=== PATIENT | female | born 1985 | race Caucasian/White ===

== ENCOUNTER 2018-05-06 15:55 | Observation (INO) ==
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
[2018-05-06 20:34] LABS: Baso % (Auto) 0.5 % (0.0-2.0); Eos # (Auto) 0.1 th/mm3 (0.0-0.4); Eos % (Auto) 1.5 % (0.0-4.0); Hematocrit 35.8 % (35.0-46.0); Hemoglobin 12.1 gm/dL (11.6-15.3); Lymph # (Auto) 1.6 th/mm3 (1.0-4.8); Lymph % (Auto) 22.1 % (9.0-44.0); Mean Corpuscular HGB Conc 33.8 % (32.0-36.0); Mean Corpuscular Hemoglobin 30.7 pg (27.0-34.0); Mean Platelet Volume 9.2 fL (7.0-11.0); Mono # (Auto) 0.4 th/mm3 (0.0-0.9); Mono % (Auto) 5.9 % (0.0-8.0); Neut # (Auto) 5.1 th/mm3 (1.8-7.7); Platelet Count 248 th/mm3 (150-450); Red Blood Count 3.93 mil/mm3 (4.00-5.30); Red Cell Distribution Width 12.5 % (11.6-17.2); White Blood Count 7.2 th/mm3 (4.0-11.0)
[2018-05-06 20:42] LABS: Activated Partial Thrombo Time 28.4 sec (23.4-31.7); Prothrombin Time 10.6 sec (9.8-11.6)
[2018-05-06 21:00] LABS: Calcium 8.8 mg/dL (8.5-10.1); Carbon Dioxide 21.8 meq/L (21.0-32.0); Potassium 4.7 meq/L (3.5-5.1)
[2018-05-06] MEDS ORDERED: Sod Chloride 0.9% Inj 1,000 ML IV.CONT SCH (21:30)
[2018-05-06] MEDS: Acetaminophen 325 MG Tablet PO PRN (23:20)
[2018-05-07] MEDS ORDERED: Chlorhexidine Gluconate 2% 1 Pack (2 Cloths) TOPICAL ONE (01:22)
[2018-05-07] MEDS ORDERED: Sodium Chlor 0.9% Inj 500 ML IV.SIG SCH (02:00)
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
[2018-05-07] MEDS: Acetaminophen 325 MG Tablet PO PRN (03:47)
[2018-05-07] MEDS ORDERED: Enoxaparin Inj 40 MG/0.4 ML Syringe SQ SCH (09:00)
[2018-05-07] MEDS ORDERED: Bupivacaine 0.5% Inj 50 ML MDV Vial ONE (11:19)
--- NOTE | 2018-05-07 12:26 | P.CONPOD ---
History of Present Illness Service: podiatry Consult date: 05/07/18 Primary Care Provider: UNKNOWN Chief Complaint: left leg traction History of Present Illness: Patient underwent open fracture/degloving injury debridement with residual large dorsal wound and tendon damage with external fixator placement a few months ago. She has been having wound care and is here for the exfix to be removed. Review of Systems All other systems reviewed negative except as stated in HPI PMFSH - History History Provided By: Patient - Medical History Medical History: Medical History (Last Reviewed 05/07/18 @ 03:23 by NAT Burkett) Umbilical hernia - Surgical History Surgical History: Surgical History (Last Reviewed 05/07/18 @ 03:24 by NAT Burkett) H/O tubal ligation - Family History Family History: Family History (Last Reviewed 05/07/18 @ 03:24 by NAT Burkett) Father No problems noted. Mother Hypertension - Tobacco History Second Hand Smoke Exposure: No Tobacco Use In Past 30 Days: Yes Smoking Status: Current every day smoker Tobacco Type: Cigarettes - Alcohol History How Often Do You Have a Drink Containing Alcohol: Never - Substance Use History Substance History: No History of Abuse - Travel History Recent Travel in the [place] Within the Last 8 Weeks: No Recent Travel Out of the Country Within the Last 8 Weeks: No - Immunization History Tetanus Immunization: Unsure Hx Influenza Vaccine This Season: No Medications and Allergies Active Medications: Active Medications Acetaminophen (Tylenol) 650 mg PO Q4H PRN PRN Reason: Temp > 100.4 Last Admin: 05/07/18 03:47 Dose: 650 mg Al Hydroxide/Mg Hydroxide (Milk Of Gilberto Pagan) 30 ml PO Q12H PRN PRN Reason: Mild Constipation Enoxaparin Sodium (Lovenox Inj) 40 mg SQ Q24H [facility] Last Admin: 05/07/18 10:03 Dose: Not Given Sodium Chloride (Ns Inj) 1,000 mls @ 75 mls/hr IV.CONT .[id number] [facility] Last Admin: 05/06/18 23:24 Dose: 75 mls/hr Lactated Ringer's (Lr 1000 Ml Inj) 1,000 mls @ 30 mls/hr IV.SIG .Q24H GRAY Stop: 05/08/18 01:29 Sodium Chloride (Ns Inj) 500 mls @ 30 mls/hr IV.SIG .Q10H GRAY Ondansetron HCl (Zofran Inj) 4 mg IV.PUSH Q6H PRN PRN Reason: NAUSEA OR VOMITING Sodium Chloride (Ns Flush) 2 ml IV.FLUSH BID GRAY Last Admin: 05/07/18 10:03 Dose: Not Given Sodium Chloride (Ns Flush) 2 ml IV.FLUSH PRN PRN PRN Reason: FLUSH AFTER USING IV ACCESS Allergies Allergy/AdvReac Type Severity Reaction Status Date / Time No Known Allergies Allergy Unverified 05/06/18 22:58 Home Medications Medication Instructions Recorded Confirmed Type ibuprofen PO Q2-4H PRN 05/06/18 History Physical Exam Vital signs: Vital Signs 05/06/18 16:32 05/06/18 22:47 05/06/18 23:50 Temperature 98.4 F 97.4 F L Pulse Rate 75 59 L Respiratory Rate 18 19 18 Blood Pressure 143/73 H 132/86 Pulse Oximetry 99 99 05/07/18 04:17 05/07/18 04:23 05/07/18 08:00 Temperature 97.6 F 97.4 F L Pulse Rate 64 72 Respiratory Rate 18 18 16 Blood Pressure 125/77 138/82 Pulse Oximetry 98 99 Intake & Output 05/06/18 05/07/18 05/07/18 18:59 06:59 18:59 Weight 72.575 kg 77.2 kg Other: # Voids 2 Weight On Admission 77.2 kg Narrative: left foot with external fixator in place, two transtibial pins, one transcalcaneal pin, and one medial/lateral foot pin, respectively, holding foot in dorsiflexion. Wound to dorsal foot/ankle measures approximately 6cm x 4cm x 0.2cm depth with granular base and no sign of infection. Results - Labs CBC & Chem 7: 05/06/18 20:17 05/06/18 20:17 Laboratory Results - last 24 hr 05/06/18 05/06/18 05/06/18 20:17 20:17 20:17 WBC 7.2 RBC 3.93 L Hgb 12.1 Hct 35.8 MCV 91.0 MCH 30.7 MCHC 33.8 RDW 12.5 Plt Count 248 MPV 9.2 Neut % (Auto) 70.0 Lymph % (Auto) 22.1 [place] % (Auto) 5.9 Eos % (Auto) 1.5 Baso % (Auto) 0.5 Neut # (Auto) 5.1 Lymph # (Auto) 1.6 [place] # (Auto) 0.4 Eos # (Auto) 0.1 Baso # (Auto) 0.0 WBC Differential . Differential Comment Auto diff final PT 10.6 INR 1.0 APTT 28.4 Sodium 137 Potassium 4.7 Chloride 110 H Carbon Dioxide 21.8 Anion Gap 5 BUN 30 H Creatinine 0.82 Estimated GFR 81 L Random Glucose 90 Calcium 8.8 Assessment and Plan - Assessment (1) Painful orthopaedic hardware Code(s): T84.84XA - Pain due to internal orthopedic prosthetic devices, implants and grafts, initial encounter Status: Acute - Plan To OR for removal of external fixator and possible graft to wound. NPO
--- NOTE | 2018-05-07 12:31 | P.BOP ---
- Preoperative Diagnosis (1) Painful orthopaedic hardware - Postoperative Diagnosis (1) Painful orthopaedic hardware Date of procedure: 05/07/18 Procedure: 1. Removal of multi-plane external fixator left foot/ankle Left foot with external fixator in place, two transtibial pins, one transcalcaneal pin, and one medial/lateral foot pin, respectively, holding foot in dorsiflexion. Wound to dorsal foot/ankle measures approximately 6cm x 4cm x 0.2cm depth with granular base and no sign of infection. All hardware removed, pin sites debrided excisionally with currettage and #15 blade of fibrotic tissue down to level of healthy bleeding subcutaneous tissue, followed by irrigation with normal saline and closure with 2-0 nylon. No skin graft placed at this time, as wound size has decreased by half since last seen in clinic 3 weeks ago and anticipate continued healing. Dressing with xeroform, 4x4, abd, cast padding, dejan, and short posterior splint. No tourniquet utilized. 2g ancef IV preop DISPOSITION: Strict nonweightbearing left lower extremity in splint. Ok to discharge today to home. She has follow up next in clinic with me already. Implants: synthes external fixator removed. Anesthesia: GETA, local (20mL 0.5% marcaine plain) Surgeon: Yeimi Melo DPM Director Part: staff Estimated blood loss (mL): 20 Pathology: none sent Condition: stable Disposition: PACU
[2018-05-07] MEDS ORDERED: fentaNYL Citrate Inj 100 MCG/2 ML Ampul ONE (12:32)
[2018-05-07] MEDS ORDERED: *morphine SULFATE 4 MG/ML PERIprocedure ONLY ONE ×2 (12:35→12:42)
[2018-05-07] MEDS ORDERED: *HYDROmorphone PF Inj 1 MG/ML Ampul PERIprocedural Use ONLY ONE (12:54)
--- NOTE | 2018-05-07 13:13 | XR ---
EXAM DATE: 05/07/2018 1:00 PM EST AGE/SEX: 32 years / Female INDICATIONS: Removal of external hardware. CLINICAL DATA: This is the patient's initial encounter. Patient reports that signs and symptoms have been present for 1 day and indicates a pain score of 7/10. MEDICAL/SURGICAL HISTORY: None. None. COMPARISON: No prior exams available for comparison. FINDINGS: No definite fractures, or dislocations are identified. No definite lytic or sclerotic les ion is seen. The surgical hardware is not identified and screw sites are visualized. CONCLUSION: Removal of surgical hardware . Electronically signed by: Carrie Hinton MD Board Certified Radiologist 05/07/2018 1:11 PM EST
--- NOTE | 2018-05-07 13:43 | XR ---
EXAM DATE: 05/07/2018 1:01 PM EST AGE/SEX: 32 years / Female INDICATIONS: Removal of external hardware. CLINICAL DATA: This is the patient's initial encounter. Patient reports that signs and symptoms have been present for 1 day and indicates a pain score of 7/10. MEDICAL/SURGICAL HISTORY: None. None. COMPARISON: No prior exams available for comparison. FINDINGS: There is mild osteopenia and surgical hardware has been removed with screw site identified. CONCLUSION: Removal of surgical hardware. Electronically signed by: Carrie Hinton MD Board Certified Radiologist 05/07/2018 1:42 PM EST
[2018-05-07 14:25] VITALS: BP 145/87; PULSE 71; RESP 16; TEMP 97.6; O2SAT 98
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
[2018-05-08] MEDS ORDERED: Enoxaparin Inj 40 MG/0.4 ML Syringe SQ SCH (11:00)
== END 2018-05-07 17:02 | disposition home or self-care (01) ==
LOC: NEDA 15:55 → NEPE 15:55 → NEDA 22:35 → N06 22:58
PROVIDERS: ADMIT Hospitalist; ATTEND Hospitalist
PROC: [UNRECOGNIZED PROCEDURE] (2018-05-07 11:25)
CPT/HCPCS: 73590; 73630; 80048; 84703; 85025; 85610; 85730; 99285; G0378; J1170; J2270; J3010; J7030